=== PATIENT | male | born 1950 | race Caucasian/White ===

== ENCOUNTER → 2024-04-03 12:00 | Outpatient (REF) | payer OTHER, SELFPAY | LOC: CLAB 12:00 | PROVIDERS: ATTENDING PHYSICIAN Otolaryngology | DX: J32.9 Chronic sinusitis, unspecified (principal) | CPT/HCPCS: 87070; 87071; 87205 ==

== ENCOUNTER → 2024-06-19 13:40 | Outpatient (REF) | payer OTHER, SELFPAY | LOC: HWRAD 13:40 | PROVIDERS: ATTENDING PHYSICIAN Otolaryngology; FAMILY PHYSICIAN Family Medicine | DX: J32.0 Chronic maxillary sinusitis (principal) | CPT/HCPCS: 70486 ==

== ENCOUNTER → 2024-07-17 15:59 | Outpatient (REF) | payer OTHER, SELFPAY | LOC: CLAB 15:59 | PROVIDERS: ATTENDING PHYSICIAN Otolaryngology | DX: J32.0 Chronic maxillary sinusitis (principal); J34.2 Deviated nasal septum | CPT/HCPCS: 88304; 88311; 87070; 87075; 87077; 87205 ==

== ENCOUNTER → 2024-11-04 11:39 | Outpatient (REF) | payer OTHER, SELFPAY | LOC: CLAB 11:39 | PROVIDERS: ATTENDING PHYSICIAN Otolaryngology | DX: R09.82 Postnasal drip (principal) | CPT/HCPCS: 87070; 87077; 87186; 87205 ==

== ENCOUNTER → 2025-04-14 14:04 | Outpatient (REF) | payer OTHER, SELFPAY | LOC: HWRAD 14:04 | PROVIDERS: ATTENDING PHYSICIAN Internal Medicine Critical Care Medicine; FAMILY PHYSICIAN Family Medicine | DX: Z87.01 Personal history of pneumonia (recurrent) (principal) | CPT/HCPCS: 71250 ==